=== PATIENT | male | born 1970 | race Caucasian/White ===

== ENCOUNTER → 2024-12-11 07:34 | Outpatient (REF) | payer OTHER, SELFPAY | LOC: HWRAD 07:34 | PROVIDERS: ATTENDING PHYSICIAN Internal Medicine | DX: F17.210 Nicotine dependence, cigarettes, uncomplicated (principal) | CPT/HCPCS: 71271 ==

== ENCOUNTER → 2025-01-21 11:19 | Outpatient (REF) | payer OTHER, SELFPAY | LOC: HWRCS 11:19 | PROVIDERS: ATTENDING PHYSICIAN Internal Medicine Cardiovascular Disease; FAMILY PHYSICIAN Internal Medicine | DX: R07.9 Chest pain, unspecified (principal) | CPT/HCPCS: 78452; 93017; A9500 ==